=== PATIENT | female | born 1965 | race African-American/Black ===

== ENCOUNTER 2021-04-13 12:40 | Outpatient (CLI) | payer MEDICARE ==
[2021-04-13 23:10] LABS: SARS-CoV-2 PCR by NAA Not Detected (NotDetected)
== END 2021-04-13 12:41 | disposition home or self-care (01) ==
LOC: CSHLAB 12:40
PROVIDERS: ATTEND Internal Medicine
DX: Z20.822 Contact with and (suspected) exposure to COVID-19 (principal); K25.4 Chronic or unspecified gastric ulcer with hemorrhage; D62 Acute posthemorrhagic anemia
CPT/HCPCS: U0003; U0005

== ENCOUNTER 2021-04-18 07:35 | Day surgery (SDC) | payer OTHER, MEDICAID ==
[2021-04-18] MEDS ORDERED: Lidocaine 1% MPF 2 ML VIAL ONE (11:59)
[2021-04-18 12:13] VITALS: BMI 55.3
[2021-04-18 12:54] LABS: Hemoglobin 10.9 g/dL (12.0-15.5); Mean Corpuscular HGB CONC 29.5 g/dL (32.0-36.0); Mean Corpuscular Hemoglobin 22.2 pg (27.0-33.0); Mean Corpuscular Volume 75.2 fl (81.6-98.3); Mean Platelet Volume 9.9 fl (7.4-10.4); Platelet Count 422 10x3/uL (150-450); RBC Distribution Width 22.7 % (11.5-14.5); Red Blood Cell (RBC) Count 4.92 10x6/uL (3.90-5.03); White Blood Cell (WBC) Count 6.5 10x3/uL (3.5-10.5)
[2021-04-18 13:08] LABS: Anion Gap 14 mmol/L (10-20); BUN (Urea Nitrogen) 19 mg/dL (9.8-20.1); Calc. Creatinine Clearance 215 mL/min (70-130); Calcium 9.2 mg/dL (7.8-10.44); Carbon Dioxide 29 mmol/L (22-29); Chloride 102 mmol/L (98-107); Glucose 103 mg/dL (70-105); Sodium 141 mmol/L (136-145)
[2021-04-18] MEDS ORDERED: Ketamine 50 MG/ML (10ML VIAL) ONE (13:12)
[2021-04-18] MEDS ORDERED: Midazolam HCl 2 mg/2 ml Vial ONE (13:12)
[2021-04-18] MEDS ORDERED: PROPOFOL 40 ML ONE (13:13)
[2021-04-18] MEDS ORDERED: Ondansetron PF 4 MG/2 ML Vial ONE (13:37)
== END 2021-04-18 14:45 | disposition home or self-care (01) ==
LOC: CSHSDC 07:35
PROVIDERS: ATTEND Internal Medicine
PROC: 0DJ08ZZ Inspection of Upper Intestinal Tract, Via Natural or Artificial Opening Endoscopic (ICD-10-PCS; principal; 2021-04-18)
DX: Z09 Encounter for follow-up examination after completed treatment for conditions other than malignant neoplasm (principal); Z87.11 Personal history of peptic ulcer disease; I10 Essential (primary) hypertension; E78.5 Hyperlipidemia, unspecified; I25.10 Atherosclerotic heart disease of native coronary artery without angina pectoris; I48.91 Unspecified atrial fibrillation; I48.92 Unspecified atrial flutter; G47.30 Sleep apnea, unspecified; E66.01 Morbid (severe) obesity due to excess calories
CPT/HCPCS: 36415; 80048; 85027; 93005; 93010; J2250; J2405; J2704

== ENCOUNTER 2021-10-31 15:46 | Inpatient (IN) | payer OTHER, MEDICAID ==
[2021-10-31 17:03] LABS: #Basophils 0.1 10x3/uL (0.0-0.2); #Monocytes 0.7 10x3/uL (0.0-1.1); #Neutrophils 3.3 10x3/uL (1.5-8.4); %Basophils 1.3 % (0.0-2.0); %Eosinophils 0.4 % (0.0-6.0); %Lymphocytes 39.2 % (18.0-47.0); %Monocytes 10.2 % (0.0-10.0); %Neutrophils 48.8 % (40.0-75.0); Hemoglobin 13.7 g/dL (12.0-15.5); Mean Corpuscular HGB CONC 31.7 g/dL (32.0-36.0); Mean Corpuscular Hemoglobin 23.3 pg (27.0-33.0); Mean Corpuscular Volume 73.5 fl (81.6-98.3); Mean Platelet Volume 10.2 fl (7.4-10.4); Platelet Count 481 10x3/uL (150-450); RBC Distribution Width 21.7 % (11.5-14.5); Red Blood Cell (RBC) Count 5.88 10x6/uL (3.90-5.03); White Blood Cell (WBC) Count 6.7 10x3/uL (3.5-10.5)
[2021-10-31 17:13] LABS: ALT (SGPT) 36 U/L (8-55); AST (SGOT) 38 U/L (5-34); Albumin 4.4 g/dL (3.5-5.0); Alkaline Phosphatase 48 U/L (40-110); Anion Gap 15 mmol/L (10-20); BUN (Urea Nitrogen) 46 mg/dL (9.8-20.1); Bilirubin, Total 0.7 mg/dL (0.2-1.2); Calc. Creatinine Clearance 0 mL/min (70-130); Calcium 9.9 mg/dL (7.8-10.44); Carbon Dioxide 25 mmol/L (22-29); Chloride 102 mmol/L (98-107); Globulin 3.3 g/dL (2.4-3.5); Glucose 105 mg/dL (70-105); Potassium 4.8 mmol/L (3.5-5.1); Protein, Total 7.7 g/dL (6.0-8.3); Sodium 137 mmol/L (136-145)
[2021-10-31] MEDS ORDERED: Aspirin Chewable 81 MG TAB ONE (17:13)
[2021-10-31 17:35] LABS: CKMB 1.9 ng/mL (0-6.6)
[2021-10-31 18:48] LABS: Bilirubin Neg (Negative); Blood, Urine 250 (Negative); Clarity Clear (Clear); Glucose, Urine (Dipstick) Normal (Negative); Ketone, Urine Negative (Negative); Leukocyte Negative (Negative); Nitrite Negative (Negative); Protein, Urine (Dipstick) 100 mg/dl (Neg-Trace); Urobilinogen Normal mg/dL (Less than 2)
[2021-10-31 18:55] LABS: Bacteria/HPF None Seen HPF (None Seen); Squamous Epithelial 0-3 HPF (0-3); WBC/HPF 0-3 HPF (0-3)
[2021-10-31] MEDS ORDERED: Calcium Carbonate 500 MG ChewTAB PO PRN (20:08)
[2021-10-31] MEDS ORDERED: Guaifenesin DM 100-10/5 ML UDCUP PO PRN (20:08)
[2021-10-31] MEDS ORDERED: Ondansetron PF 4 MG/2 ML Vial IVP PRN (20:08)
[2021-10-31] MEDS ORDERED: Acetaminophen 325 MG TAB PO PRN (20:08)
[2021-10-31] MEDS ORDERED: Senokot S 8.6-50 MG TAB PO PRN (20:08)
[2021-10-31] MEDS ORDERED: Diltiazem 125 MG in Sodium Chloride 0.9% 100 ML IVPB SCH (20:15)
[2021-10-31] MEDS ORDERED: Digoxin 0.5 MG/2 ML AMP SLOW IVP SCH ×2 (20:15)
[2021-10-31] MEDS ORDERED: Metoprolol Tartrate 50 MG TAB PO SCH (21:00)
[2021-10-31 21:06] LABS: SARS-CoV-2 NAA Rapid Test Not Detected (NotDetected)
[2021-10-31 21:14] LABS: Troponin I 0.261 ng/mL (< 0.028)
[2021-10-31] MEDS ORDERED: Diltiazem 125 MG/25 ML ONE (21:59)
[2021-10-31] MEDS ORDERED: Furosemide 40 MG/4 ML VIAL ONE (22:05)
[2021-10-31 22:58] VITALS: BMI 53.6
[2021-10-31] MEDS: Atorvastatin Calcium 40 MG TAB PO SCH (23:24)
[2021-10-31 23:52] LABS: CKMB 1.7 ng/mL (0-6.6)
[2021-11-01] MEDS ORDERED: Digoxin 0.5 MG/2 ML AMP SLOW IVP SCH ×2 (03:00→05:30)
[2021-11-01 04:54] LABS: Hemoglobin 12.6 g/dL (12.0-15.5); Mean Corpuscular HGB CONC 32.1 g/dL (32.0-36.0); Mean Corpuscular Hemoglobin 23.5 pg (27.0-33.0); Mean Corpuscular Volume 73.1 fl (81.6-98.3); Mean Platelet Volume 10.3 fl (7.4-10.4); Platelet Count 398 10x3/uL (150-450); Red Blood Cell (RBC) Count 5.36 10x6/uL (3.90-5.03); White Blood Cell (WBC) Count 5.4 10x3/uL (3.5-10.5)
[2021-11-01 05:18] LABS: Anion Gap 17 mmol/L (10-20); BUN (Urea Nitrogen) 46 mg/dL (9.8-20.1); Calc. Creatinine Clearance 136 mL/min (70-130); Calcium 9.1 mg/dL (7.8-10.44); Carbon Dioxide 23 mmol/L (22-29); Chloride 102 mmol/L (98-107); Glucose 91 mg/dL (70-105); Sodium 138 mmol/L (136-145)
[2021-11-01 05:30] LABS: MDiff Complete? YES
[2021-11-01 05:31] LABS: CKMB 1.8 ng/mL (0-6.6)
[2021-11-01 05:34] LABS: Lymphocytes 49 % (21-51); Monocytes 11 % (0-10); Neutrophil 39 % (42-75); Platelet Morphology Comment Appears Adequate; Reactive Lymphocytes 1 % (0-10)
[2021-11-01 05:35] LABS: RBC Morphology Normal
[2021-11-01 05:43] LABS: Free T4 (Free Thyroxine) 0.98 ng/dL (0.70-1.48); Thyroid Stimulating Hormone 4.2402 uIU/mL (0.35-4.94)
[2021-11-01] MEDS: Furosemide 20 MG/2 ML VIAL SLOW IVP SCH ×2 (05:54→16:00)
[2021-11-01] MEDS: Aspirin 81 mg Enteric Coated Tablet PO SCH (08:09)
[2021-11-01] MEDS: Carvedilol 12.5 MG TAB PO SCH ×2 (08:09→16:35)
[2021-11-01] MEDS: Ferrous Sulfate 325 MG TAB PO SCH (08:09)
[2021-11-01] MEDS: Cholecalciferol 1,000 UNITS (25 MCG) TAB PO SCH (08:10)
[2021-11-01] MEDS: Digoxin 0.25 MG TAB PO SCH (08:45)
[2021-11-01] MEDS ORDERED: Enoxaparin Sodium 40 MG/0.4 ML SYRINGE SC SCH (09:00)
[2021-11-01 11:59] LABS: Bilirubin Neg (Negative); Blood, Urine 250 (Negative); Clarity Cloudy (Clear); Glucose, Urine (Dipstick) Normal (Negative); Ketone, Urine Negative (Negative); Leukocyte 25 (Negative); Nitrite Negative (Negative); Protein, Urine (Dipstick) 100 mg/dl (Neg-Trace); Urobilinogen Normal mg/dL (Less than 2)
[2021-11-01 12:19] LABS: Urine Culture Reflex No No
[2021-11-01 12:30] LABS: RBC/HPF Greater than 50 HPF (0-3)
[2021-11-01 12:31] LABS: Squamous Epithelial 0-3 HPF (0-3); WBC/HPF 0-3 HPF (0-3)
[2021-11-01 12:33] LABS: Bacteria/HPF None Seen HPF (None Seen)
[2021-11-01] MEDS: Atorvastatin Calcium 40 MG TAB PO SCH (20:16)
[2021-11-01] MEDS ORDERED: Apixaban 5 MG TAB PO SCH (21:00)
[2021-11-02] MEDS: Furosemide 20 MG/2 ML VIAL SLOW IVP SCH ×2 (05:53→15:33)
[2021-11-02] MEDS: Enoxaparin Sodium 40 MG/0.4 ML SYRINGE SC SCH (08:51)
[2021-11-02] MEDS: Cholecalciferol 1,000 UNITS (25 MCG) TAB PO SCH (08:51)
[2021-11-02] MEDS: Carvedilol 12.5 MG TAB PO SCH ×3 (08:52→20:36)
[2021-11-02] MEDS: Aspirin 81 mg Enteric Coated Tablet PO SCH (08:52)
[2021-11-02] MEDS: Digoxin 0.25 MG TAB PO SCH (08:52)
[2021-11-02] MEDS: Ferrous Sulfate 325 MG TAB PO SCH (08:56)
[2021-11-02] MEDS ORDERED: Digoxin 0.5 MG/2 ML AMP SLOW IVP SCH (10:00)
[2021-11-02 11:07] LABS: Anion Gap 14 mmol/L (10-20); BUN (Urea Nitrogen) 38 mg/dL (9.8-20.1); Calc. Creatinine Clearance 170 mL/min (70-130); Calcium 9.2 mg/dL (7.8-10.44); Carbon Dioxide 25 mmol/L (22-29); Chloride 101 mmol/L (98-107); Estimated GFR 67; Glucose 117 mg/dL (70-105); Magnesium 1.9 mg/dL (1.6-2.6); Potassium 4.2 mmol/L (3.5-5.1); Sodium 136 mmol/L (136-145)
[2021-11-02] MEDS: Atorvastatin Calcium 40 MG TAB PO SCH (20:36)
[2021-11-02] MEDS ORDERED: diphenhydrAMINE 25 MG CAP PO PRN (22:34)
[2021-11-03] MEDS: Furosemide 20 MG/2 ML VIAL SLOW IVP SCH (05:46)
[2021-11-03] MEDS: Enoxaparin Sodium 40 MG/0.4 ML SYRINGE SC SCH (08:18)
[2021-11-03] MEDS: Aspirin 81 mg Enteric Coated Tablet PO SCH (08:19)
[2021-11-03] MEDS: Digoxin 0.25 MG TAB PO SCH (08:19)
[2021-11-03] MEDS: Carvedilol 12.5 MG TAB PO SCH ×3 (08:19→19:39)
[2021-11-03] MEDS: Cholecalciferol 1,000 UNITS (25 MCG) TAB PO SCH (08:19)
[2021-11-03] MEDS: Ferrous Sulfate 325 MG TAB PO SCH (08:19)
[2021-11-03] MEDS ORDERED: Furosemide 20 MG TAB PO SCH (14:00)
[2021-11-03 19:16] LABS: Digoxin 1.01 ng/mL (0.8-2.0)
[2021-11-03] MEDS: Atorvastatin Calcium 40 MG TAB PO SCH (19:38)
[2021-11-04 06:17] LABS: Anion Gap 16 mmol/L (10-20); BUN (Urea Nitrogen) 37 mg/dL (9.8-20.1); Calc. Creatinine Clearance 152 mL/min (70-130); Carbon Dioxide 26 mmol/L (22-29); Chloride 102 mmol/L (98-107); Estimated GFR 58; Glucose 104 mg/dL (70-105); Potassium 4.1 mmol/L (3.5-5.1); Sodium 140 mmol/L (136-145)
[2021-11-04 06:27] LABS: Hemoglobin 12.4 g/dL (12.0-15.5); Mean Corpuscular HGB CONC 31.5 g/dL (32.0-36.0); Mean Corpuscular Hemoglobin 23.3 pg (27.0-33.0); Mean Corpuscular Volume 74.1 fl (81.6-98.3); Mean Platelet Volume 9.9 fl (7.4-10.4); Platelet Count 419 10x3/uL (150-450); RBC Distribution Width 21.9 % (11.5-14.5); Red Blood Cell (RBC) Count 5.32 10x6/uL (3.90-5.03); White Blood Cell (WBC) Count 5.4 10x3/uL (3.5-10.5)
[2021-11-04] MEDS: Ferrous Sulfate 325 MG TAB PO SCH (09:22)
[2021-11-04] MEDS: Enoxaparin Sodium 40 MG/0.4 ML SYRINGE SC SCH (09:22)
[2021-11-04] MEDS: Cholecalciferol 1,000 UNITS (25 MCG) TAB PO SCH (09:22)
[2021-11-04] MEDS: Furosemide 20 MG TAB PO SCH ×3 (09:23→15:24)
[2021-11-04] MEDS: Digoxin 0.25 MG TAB PO SCH (09:23)
[2021-11-04] MEDS: Aspirin 81 mg Enteric Coated Tablet PO SCH (09:23)
[2021-11-04] MEDS: Carvedilol 12.5 MG TAB PO SCH ×2 (09:23→15:00)
[2021-11-04 16:20] VITALS: BP 120/55; TEMP 97.5
== END 2021-11-04 16:35 | disposition home or self-care (01) | DRG 291 ==
LOC: CSHERS 15:46 → CSHIMCU 22:30 → CSHTELE 11-03 22:16
PROVIDERS: ADMIT Student in an Organized Health Care Education/Training Program; ATTEND Internal Medicine
DX: I13.0 Hypertensive heart and chronic kidney disease with heart failure and stage 1 through stage 4 chronic kidney disease, or unspecified chronic kidney disease (principal); I50.43 Acute on chronic combined systolic (congestive) and diastolic (congestive) heart failure; I31.3 Pericardial effusion (noninflammatory); I48.92 Unspecified atrial flutter; N17.9 Acute kidney failure, unspecified; Z68.43 Body mass index [BMI] 50.0-59.9, adult; I48.19 Other persistent atrial fibrillation; Z20.822 Contact with and (suspected) exposure to COVID-19; R79.89 Other specified abnormal findings of blood chemistry; E66.01 Morbid (severe) obesity due to excess calories; E55.9 Vitamin D deficiency, unspecified; E78.2 Mixed hyperlipidemia; I08.0 Rheumatic disorders of both mitral and aortic valves; M19.90 Unspecified osteoarthritis, unspecified site; E03.9 Hypothyroidism, unspecified; R00.1 Bradycardia, unspecified; I95.9 Hypotension, unspecified; N18.9 Chronic kidney disease, unspecified; R73.03 Prediabetes; G47.33 Obstructive sleep apnea (adult) (pediatric); Z82.49 Family history of ischemic heart disease and other diseases of the circulatory system; Z88.8 Allergy status to other drugs, medicaments and biological substances; Z79.899 Other long term (current) drug therapy; I25.2 Old myocardial infarction; Z87.11 Personal history of peptic ulcer disease; Z56.0 Unemployment, unspecified; Z91.19 Patient's noncompliance with other medical treatment and regimen
CPT/HCPCS: 36415; 71045; 80048; 80053; 80162; 81001; 81003; 81015; 82553; 83036; 83735; 83880; 84439; 84443; 84484; 85025; 85027; 87077; 87086; 93005; 93010; 93306; 94660; 94760; 96374; 96375; 96376; J1160; J1650; J1940; J3490; U0002

== ENCOUNTER 2021-12-17 15:04 | Inpatient (IN) | payer OTHER, MEDICAID ==
[2021-12-17 15:46] LABS: #Basophils 0.1 10x3/uL (0.0-0.2); #Monocytes 0.6 10x3/uL (0.0-1.1); #Neutrophils 2.8 10x3/uL (1.5-8.4); %Basophils 1.5 % (0.0-2.0); %Eosinophils 0.4 % (0.0-6.0); %Lymphocytes 33.8 % (18.0-47.0); %Monocytes 10.4 % (0.0-10.0); %Neutrophils 53.5 % (40.0-75.0); Hemoglobin 14.3 g/dL (12.0-15.5); Mean Corpuscular HGB CONC 31.8 g/dL (32.0-36.0); Mean Corpuscular Hemoglobin 24.2 pg (27.0-33.0); Mean Platelet Volume 10.3 fl (7.4-10.4); Platelet Count 410 10x3/uL (150-450); RBC Distribution Width 21.1 % (11.5-14.5); Red Blood Cell (RBC) Count 5.91 10x6/uL (3.90-5.03); White Blood Cell (WBC) Count 5.3 10x3/uL (3.5-10.5)
[2021-12-17 15:56] LABS: INR-International Normal Ratio 1.3; PTT 23.8 sec (22.0-33.0); Prothrombin Time 13.7 sec (9.5-12.1)
[2021-12-17 15:59] LABS: ALT (SGPT) 48 U/L (8-55); AST (SGOT) 41 U/L (5-34); Albumin 3.7 g/dL (3.5-5.0); Alkaline Phosphatase 62 U/L (40-110); Anion Gap 16 mmol/L (10-20); BUN (Urea Nitrogen) 52 mg/dL (9.8-20.1); Bilirubin, Total 1.5 mg/dL (0.2-1.2); Calc. Creatinine Clearance 0 mL/min (70-130); Calcium 9.4 mg/dL (7.8-10.44); Carbon Dioxide 24 mmol/L (22-29); Chloride 101 mmol/L (98-107); Estimated GFR 33; Globulin 2.6 g/dL (2.4-3.5); Glucose 149 mg/dL (70-105); Magnesium 2.1 mg/dL (1.6-2.6); Potassium 4.8 mmol/L (3.5-5.1); Protein, Total 6.3 g/dL (6.0-8.3); Sodium 136 mmol/L (136-145)
[2021-12-17 16:15] LABS: Digoxin Less than 0.15 ng/mL (0.8-2.0)
[2021-12-17] MEDS ORDERED: Digoxin 0.5 MG/2 ML AMP ONE (16:29)
[2021-12-17] MEDS ORDERED: Furosemide 40 MG/4 ML VIAL ONE (16:31)
[2021-12-17 16:33] LABS: CKMB 1.8 ng/mL (0-6.6)
[2021-12-17] MEDS ORDERED: Acetaminophen 325 MG TAB PO PRN (17:11)
[2021-12-17] MEDS ORDERED: Ondansetron PF 4 MG/2 ML Vial IVP PRN (17:11)
[2021-12-17] MEDS ORDERED: Senokot S 8.6-50 MG TAB PO PRN (17:11)
[2021-12-17] MEDS ORDERED: Ondansetron ODT 4 MG TAB PO PRN (17:11)
[2021-12-17] MEDS ORDERED: Diltiazem 125 MG in Sodium Chloride 0.9% 100 ML IVPB SCH (18:15)
[2021-12-17 18:16] VITALS: BMI 56.0
[2021-12-17 19:08] LABS: Troponin I 0.141 ng/mL (< 0.028)
[2021-12-17 20:01] LABS: Clarity Clear (Clear)
[2021-12-17 20:02] LABS: Bilirubin Neg (Negative); Blood, Urine Negative (Negative); Glucose, Urine (Dipstick) Normal (Negative); Ketone, Urine Negative (Negative); Leukocyte Negative (Negative); Nitrite Negative (Negative); Protein, Urine (Dipstick) Negative (Neg-Trace); Specific Gravity, Urine 1.015 (1.002-1.036); Urobilinogen Normal mg/dL (Less than 2)
[2021-12-17 20:09] LABS: Bacteria/HPF None Seen HPF (None Seen); RBC/HPF None Seen HPF (0-3); Squamous Epithelial 0-3 HPF (0-3); WBC/HPF 0-3 HPF (0-3)
[2021-12-17 20:31] LABS: SARS-CoV-2 NAA Rapid Test Not Detected (NotDetected)
[2021-12-17] MEDS: Carvedilol 12.5 MG TAB PO SCH (21:13)
[2021-12-17] MEDS: Atorvastatin Calcium 40 MG TAB PO SCH (21:13)
[2021-12-17 22:09] LABS: Troponin I 0.148 ng/mL (< 0.028)
[2021-12-17] MEDS ORDERED: diphenhydrAMINE 25 MG CAP PO SCH (22:30)
[2021-12-18 04:46] LABS: Anion Gap 15 mmol/L (10-20); BUN (Urea Nitrogen) 48 mg/dL (9.8-20.1); Calc. Creatinine Clearance 117 mL/min (70-130); Calcium 8.6 mg/dL (7.8-10.44); Carbon Dioxide 22 mmol/L (22-29); Chloride 104 mmol/L (98-107); Estimated GFR 40; Glucose 96 mg/dL (70-105); Potassium 4.2 mmol/L (3.5-5.1); Sodium 137 mmol/L (136-145)
[2021-12-18 05:39] LABS: Hemoglobin 13.4 g/dL (12.0-15.5); Mean Corpuscular HGB CONC 32.3 g/dL (32.0-36.0); Mean Corpuscular Hemoglobin 24.5 pg (27.0-33.0); Mean Corpuscular Volume 75.9 fl (81.6-98.3); Mean Platelet Volume 10.5 fl (7.4-10.4); RBC Distribution Width 21.1 % (11.5-14.5); Red Blood Cell (RBC) Count 5.47 10x6/uL (3.90-5.03); White Blood Cell (WBC) Count 5.2 10x3/uL (3.5-10.5)
[2021-12-18 05:54] LABS: #Basophils 0.1 10x3/uL (0.0-0.2); #Eosinphils 0.1 10x3/uL (0.0-0.5); #Monocytes 0.7 10x3/uL (0.0-1.1); #Neutrophils 2.2 10x3/uL (1.5-8.4); %Basophils 1.9 % (0.0-2.0); %Eosinophils 1.1 % (0.0-6.0); %Lymphocytes 41.7 % (18.0-47.0); %Monocytes 12.7 % (0.0-10.0); %Neutrophils 41.8 % (40.0-75.0)
[2021-12-18] MEDS ORDERED: Furosemide 40 MG/4 ML VIAL SLOW IVP SCH (06:00)
[2021-12-18 06:04] LABS: Platelet Count 348 10x3/uL (150-450)
[2021-12-18] MEDS: Aspirin 81 mg Enteric Coated Tablet PO SCH (09:23)
[2021-12-18] MEDS: Ferrous Sulfate 325 MG TAB PO SCH (09:23)
[2021-12-18] MEDS: Carvedilol 12.5 MG TAB PO SCH ×3 (09:23→21:13)
[2021-12-18] MEDS: Cholecalciferol 1,000 UNITS (25 MCG) TAB PO SCH (09:23)
[2021-12-18] MEDS: Digoxin 0.25 MG TAB PO SCH (09:23)
[2021-12-18] MEDS: Furosemide 40 MG/4 ML VIAL SLOW IVP SCH ×3 (09:24→21:13)
[2021-12-18] MEDS: Atorvastatin Calcium 40 MG TAB PO SCH (21:13)
[2021-12-18] MEDS ORDERED: diphenhydrAMINE 25 MG CAP PO SCH (21:15)
[2021-12-19] MEDS: Carvedilol 12.5 MG TAB PO SCH ×3 (08:34→20:43)
[2021-12-19] MEDS: Ferrous Sulfate 325 MG TAB PO SCH (08:34)
[2021-12-19] MEDS: Furosemide 40 MG/4 ML VIAL SLOW IVP SCH ×3 (08:34→20:43)
[2021-12-19] MEDS: Digoxin 0.25 MG TAB PO SCH (08:34)
[2021-12-19] MEDS: Cholecalciferol 1,000 UNITS (25 MCG) TAB PO SCH (08:34)
[2021-12-19] MEDS: Aspirin 81 mg Enteric Coated Tablet PO SCH (08:34)
[2021-12-19 08:44] LABS: #Basophils 0.1 10x3/uL (0.0-0.2); #Eosinphils 0.1 10x3/uL (0.0-0.5); #Monocytes 0.5 10x3/uL (0.0-1.1); #Neutrophils 2.7 10x3/uL (1.5-8.4); %Basophils 1.1 % (0.0-2.0); %Eosinophils 1.3 % (0.0-6.0); %Lymphocytes 27.6 % (18.0-47.0); %Monocytes 10.3 % (0.0-10.0); %Neutrophils 59.5 % (40.0-75.0); Hemoglobin 13.6 g/dL (12.0-15.5); Mean Corpuscular HGB CONC 31.3 g/dL (32.0-36.0); Mean Corpuscular Hemoglobin 24.7 pg (27.0-33.0); Mean Corpuscular Volume 79.1 fl (81.6-98.3); Mean Platelet Volume 10.4 fl (7.4-10.4); Platelet Count 352 10x3/uL (150-450); RBC Distribution Width 21.1 % (11.5-14.5); White Blood Cell (WBC) Count 4.6 10x3/uL (3.5-10.5)
[2021-12-19 08:55] LABS: Anion Gap 11 mmol/L (10-20); BUN (Urea Nitrogen) 43 mg/dL (9.8-20.1); Calc. Creatinine Clearance 134 mL/min (70-130); Calcium 8.8 mg/dL (7.8-10.44); Carbon Dioxide 34 mmol/L (22-29); Chloride 101 mmol/L (98-107); Estimated GFR 48; Glucose 100 mg/dL (70-105); Magnesium 1.8 mg/dL (1.6-2.6); Potassium 4.1 mmol/L (3.5-5.1); Sodium 142 mmol/L (136-145)
[2021-12-19] MEDS ORDERED: Magnesium Oxide 400 MG TAB PO SCH (14:15)
[2021-12-19] MEDS: Atorvastatin Calcium 40 MG TAB PO SCH (20:43)
[2021-12-19] MEDS ORDERED: diphenhydrAMINE 25 MG CAP PO SCH (22:15)
[2021-12-20 08:39] LABS: #Basophils 0.1 10x3/uL (0.0-0.2); #Eosinphils 0.1 10x3/uL (0.0-0.5); #Monocytes 0.5 10x3/uL (0.0-1.1); #Neutrophils 2.8 10x3/uL (1.5-8.4); %Basophils 1.1 % (0.0-2.0); %Eosinophils 1.7 % (0.0-6.0); %Monocytes 10.1 % (0.0-10.0); %Neutrophils 59.1 % (40.0-75.0); Anion Gap 13 mmol/L (10-20); BUN (Urea Nitrogen) 37 mg/dL (9.8-20.1); Calc. Creatinine Clearance 160 mL/min (70-130); Calcium 8.7 mg/dL (7.8-10.44); Carbon Dioxide 31 mmol/L (22-29); Chloride 103 mmol/L (98-107); Estimated GFR 61; Glucose 105 mg/dL (70-105); Hemoglobin 13.6 g/dL (12.0-15.5); Mean Corpuscular HGB CONC 31.3 g/dL (32.0-36.0); Mean Corpuscular Hemoglobin 24.2 pg (27.0-33.0); Mean Corpuscular Volume 77.2 fl (81.6-98.3); Mean Platelet Volume 10.2 fl (7.4-10.4); Platelet Count 387 10x3/uL (150-450); Potassium 4.2 mmol/L (3.5-5.1); Red Blood Cell (RBC) Count 5.62 10x6/uL (3.90-5.03); Sodium 143 mmol/L (136-145); White Blood Cell (WBC) Count 4.8 10x3/uL (3.5-10.5)
[2021-12-20 08:40] LABS: Magnesium 1.7 mg/dL (1.6-2.6)
[2021-12-20] MEDS: Cholecalciferol 1,000 UNITS (25 MCG) TAB PO SCH (10:09)
[2021-12-20] MEDS: Furosemide 40 MG/4 ML VIAL SLOW IVP SCH ×3 (10:09→20:37)
[2021-12-20] MEDS: Digoxin 0.25 MG TAB PO SCH (10:09)
[2021-12-20] MEDS: Aspirin 81 mg Enteric Coated Tablet PO SCH (10:09)
[2021-12-20] MEDS: Ferrous Sulfate 325 MG TAB PO SCH (10:09)
[2021-12-20] MEDS: Carvedilol 12.5 MG TAB PO SCH ×3 (10:10→20:37)
[2021-12-20] MEDS: Magnesium Oxide 400 MG TAB PO SCH (10:10)
[2021-12-20] MEDS: Atorvastatin Calcium 40 MG TAB PO SCH (20:37)
[2021-12-20] MEDS ORDERED: diphenhydrAMINE 25 MG CAP PO SCH (22:30)
[2021-12-21 09:16] LABS: Anion Gap 13 mmol/L (10-20); BUN (Urea Nitrogen) 27 mg/dL (9.8-20.1); Calc. Creatinine Clearance 166 mL/min (70-130); Calcium 8.8 mg/dL (7.8-10.44); Carbon Dioxide 35 mmol/L (22-29); Chloride 102 mmol/L (98-107); Estimated GFR 64; Glucose 110 mg/dL (70-105); Magnesium 1.5 mg/dL (1.6-2.6); Potassium 3.8 mmol/L (3.5-5.1); Sodium 146 mmol/L (136-145)
[2021-12-21] MEDS: Carvedilol 12.5 MG TAB PO SCH ×2 (09:37→15:30)
[2021-12-21] MEDS: Magnesium Oxide 400 MG TAB PO SCH (09:37)
[2021-12-21] MEDS: Ferrous Sulfate 325 MG TAB PO SCH (09:37)
[2021-12-21] MEDS: Digoxin 0.25 MG TAB PO SCH (09:37)
[2021-12-21] MEDS: Cholecalciferol 1,000 UNITS (25 MCG) TAB PO SCH (09:37)
[2021-12-21] MEDS: Aspirin 81 mg Enteric Coated Tablet PO SCH (09:37)
[2021-12-21] MEDS: Furosemide 40 MG/4 ML VIAL SLOW IVP SCH (09:37)
[2021-12-21] MEDS ORDERED: Potassium Chloride 20 MEQ TAB PO SCH (10:00)
[2021-12-21] MEDS ORDERED: Magnesium 2 GM/50 ML(in water) 2 GM in Premix Bag 1 BAG IVPB SCH (10:00)
[2021-12-21] MEDS ORDERED: traMADol HCl 50 MG TAB PO SCH (11:00)
[2021-12-21 14:38] VITALS: BP 116/53; TEMP 95.6
[2021-12-22] MEDS ORDERED: Torsemide 100 MG TAB PO SCH (10:00)
== END 2021-12-21 18:25 | disposition home or self-care (01) | DRG 291 ==
LOC: CSHERS 15:04 → CSHTELE 16:53
PROVIDERS: ADMIT Family Medicine; ATTEND Family Medicine
DX: I11.0 Hypertensive heart disease with heart failure (principal); I50.43 Acute on chronic combined systolic (congestive) and diastolic (congestive) heart failure; J96.21 Acute and chronic respiratory failure with hypoxia; Z68.43 Body mass index [BMI] 50.0-59.9, adult; N17.9 Acute kidney failure, unspecified; I48.19 Other persistent atrial fibrillation; I48.92 Unspecified atrial flutter; I42.9 Cardiomyopathy, unspecified; G47.33 Obstructive sleep apnea (adult) (pediatric); M19.90 Unspecified osteoarthritis, unspecified site; E03.9 Hypothyroidism, unspecified; E66.01 Morbid (severe) obesity due to excess calories; I27.20 Pulmonary hypertension, unspecified; R73.9 Hyperglycemia, unspecified; D50.9 Iron deficiency anemia, unspecified; K21.9 Gastro-esophageal reflux disease without esophagitis; E78.2 Mixed hyperlipidemia; R73.03 Prediabetes; Z20.822 Contact with and (suspected) exposure to COVID-19; I08.0 Rheumatic disorders of both mitral and aortic valves; Z88.8 Allergy status to other drugs, medicaments and biological substances; Z99.81 Dependence on supplemental oxygen; Z79.82 Long term (current) use of aspirin; Z79.899 Other long term (current) drug therapy; Z79.01 Long term (current) use of anticoagulants; Z91.19 Patient's noncompliance with other medical treatment and regimen
CPT/HCPCS: 36415; 71045; 80048; 80053; 80162; 81001; 82553; 83735; 83880; 84484; 85025; 85610; 85730; 93005; 94760; 96374; 96375; 97139; J1160; J1940; J3475; U0002

== ENCOUNTER 2022-08-27 10:50 | Inpatient (IN) | payer OTHER, MEDICAID ==
[2022-08-27] MEDS ORDERED: Bumetanide 1 MG/4 ML VIAL IVP SCH (11:30)
[2022-08-27 11:48] LABS: #Basophils 0.1 10x3/uL (0.0-0.2); #Monocytes 0.5 10x3/uL (0.0-1.1); #Neutrophils 3.3 10x3/uL (1.5-8.4); %Basophils 1.1 % (0.0-2.0); %Eosinophils 0.4 % (0.0-6.0); %Lymphocytes 18.7 % (18.0-47.0); %Neutrophils 69.4 % (40.0-75.0); Mean Corpuscular HGB CONC 35.8 g/dL (32.0-36.0); Mean Corpuscular Hemoglobin 29.9 pg (27.0-33.0); Mean Corpuscular Volume 83.6 fl (81.6-98.3); Mean Platelet Volume 10.8 fl (7.4-10.4); Platelet Count 169 10x3/uL (150-450); Red Blood Cell (RBC) Count 5.68 10x6/uL (3.90-5.03); White Blood Cell (WBC) Count 4.7 10x3/uL (3.5-10.5)
[2022-08-27 12:00] LABS: ALT (SGPT) 26 U/L (8-55); Albumin 3.1 g/dL (3.5-5.0); Alkaline Phosphatase 103 U/L (40-110); Anion Gap 19 mmol/L (10-20); BUN (Urea Nitrogen) 72 mg/dL (9.8-20.1); Bilirubin, Total 3.5 mg/dL (0.2-1.2); Calc. Creatinine Clearance 0 mL/min (70-130); Calcium 9.3 mg/dL (7.8-10.44); Carbon Dioxide 20 mmol/L (22-29); Chloride 97 mmol/L (98-107); Estimated GFR 23; Globulin 3.8 g/dL (2.4-3.5); Glucose 87 mg/dL (70-105); Lipase 12 U/L (8-78); Protein, Total 6.9 g/dL (6.0-8.3); Sodium 130 mmol/L (136-145)
[2022-08-27 12:15] LABS: AST (SGOT) 42 U/L (5-34); Magnesium 1.9 mg/dL (1.6-2.6); Potassium 6.4 mmol/L (3.5-5.1)
[2022-08-27 12:35] LABS: CKMB 3.7 ng/mL (0-6.6)
[2022-08-27 13:04] LABS: Actual Bicarbonate (HCO3a) 17.4 mEq/L (22-28); Base Excess (BEa) -7.1 mEq/L (-2.0 to +3.0); Calcium, Ionized (arterial) 1.29 mmol/L (1.12-1.30); Carboxyhemoglobin (COHb) 1.1 gm% (0.0-3.0); Hematocrit-ABG 51 % (36.0-47.0); Hemoglobin (Hb) 17.4 g/dL (12.0-16.0); O2 Tension (PaO2), arterial 77.8 mmHg (80.0-100.0); Potassium - ABG Lab 5.69 mmol/L (3.70-5.30); Puncture Site LRA; pH, Arterial 7.339 (7.35-7.45)
[2022-08-27] MEDS ORDERED: Calcium Chloride 1 GM/10 ML Abboject SYRINGE ONE (13:13)
[2022-08-27] MEDS ORDERED: Dextrose 50% Abboject 50 ML SYRINGE ONE ×2 (13:13→16:15)
[2022-08-27] MEDS ORDERED: Insulin Regular 300 UNITS/3 ML VIAL ONE (13:14)
[2022-08-27] MEDS ORDERED: Sodium Bicarb 50 MEQ/50 ML Abboject 8.4% SYRINGE ONE (13:14)
[2022-08-27] MEDS ORDERED: LOKELMA 10 GM PACKET PO SCH (13:30)
[2022-08-27 13:42] LABS: Anion Gap 17 mmol/L (10-20); BUN (Urea Nitrogen) 72 mg/dL (9.8-20.1); Calc. Creatinine Clearance 0 mL/min (70-130); Calcium 9.6 mg/dL (7.8-10.44); Carbon Dioxide 22 mmol/L (22-29); Chloride 97 mmol/L (98-107); Estimated GFR 23; Glucose 80 mg/dL (70-105); Sodium 130 mmol/L (136-145)
[2022-08-27 13:56] LABS: Potassium 6.3 mmol/L (3.5-5.1)
[2022-08-27] MEDS ORDERED: Midazolam HCl 2 mg/2 ml Vial ONE ×2 (13:59→14:38)
[2022-08-27] MEDS ORDERED: Metoprolol Tartrate 5 MG/5 ML VIAL IVP PRN ×2 (14:49→16:02)
[2022-08-27] MEDS ORDERED: NOREPINEPHRINE 8 MG/250 ML-D5W 250 ML ONE (15:28)
[2022-08-27 16:05] LABS: Anion Gap 15 mmol/L (10-20); BUN (Urea Nitrogen) 73 mg/dL (9.8-20.1); Calc. Creatinine Clearance 0 mL/min (70-130); Calcium 9.5 mg/dL (7.8-10.44); Carbon Dioxide 24 mmol/L (22-29); Chloride 97 mmol/L (98-107); Estimated GFR 24; Potassium 5.3 mmol/L (3.5-5.1); Sodium 131 mmol/L (136-145)
[2022-08-27 16:12] LABS: Glucose 53 mg/dL (70-105)
[2022-08-27 16:20] LABS: Bilirubin Neg (Negative); Blood, Urine 250 (Negative); Clarity Clear (Clear); Glucose, Urine (Dipstick) Normal (Negative); Ketone, Urine Negative (Negative); Leukocyte 25 (Negative); Nitrite Negative (Negative); Protein, Urine (Dipstick) 30 mg/dl (Neg-Trace)
[2022-08-27 17:17] LABS: RBC/HPF 21-50 HPF (0-3)
[2022-08-27 17:18] LABS: Bacteria/HPF 2+ HPF (None Seen); Mucous/LPF 1+ LPF (<2+); WBC/HPF 0-3 HPF (0-3)
[2022-08-27] MEDS ORDERED: Dextrose 5% in Water 1,000 ML IV PRN (18:08)
[2022-08-27] MEDS ORDERED: HumaLOG 300 UNITS/3 ML VIAL SC PRN (18:08)
[2022-08-27] MEDS ORDERED: Albumin 25% 25 GM/100 ML BOT IVPB PRN (18:30)
[2022-08-27 19:54] LABS: HBSAg Index 0.17 S/CO (0-0.99); Hep B Surf Ag Non-Reactive S/CO (NonReactive)
[2022-08-27] MEDS ORDERED: Levothyroxine Sodium 50 MCG TAB PO SCH (20:00)
[2022-08-27] MEDS ORDERED: Vancomycin Dialysis Sliding Scale (Wt > 99) FS SCH (20:15)
[2022-08-27] MEDS: Heparin 5,000 UNITS/ML VIAL SC SCH (20:43)
[2022-08-27] MEDS: Hydrocortisone Sod Succ/PF 100 mg/2 ml Vial IVP SCH (20:43)
[2022-08-27] MEDS ORDERED: Digoxin 0.5 MG/2 ML AMP SLOW IVP SCH (21:00)
[2022-08-27] MEDS ORDERED: Vancomycin 1 GM in Premix Bag 1 BAG IVPB SCH (21:00)
[2022-08-27 21:45] LABS: Anion Gap 18 mmol/L (10-20); BUN (Urea Nitrogen) 57 mg/dL (9.8-20.1); Calc. Creatinine Clearance 90 mL/min (70-130); Calcium 9.2 mg/dL (7.8-10.44); Carbon Dioxide 22 mmol/L (22-29); Chloride 97 mmol/L (98-107); Estimated GFR 27; Glucose 83 mg/dL (70-105); Potassium 4.9 mmol/L (3.5-5.1); Sodium 132 mmol/L (136-145)
[2022-08-27 21:46] LABS: Digoxin Less than 0.15 ng/mL (0.8-2.0)
[2022-08-27] MEDS: Acetaminophen 325 MG TAB PO PRN (22:01)
[2022-08-28] MEDS ORDERED: VANCOMYCIN 1.75 GM/350 ML BAG 1.75 GM in Premix Bag 1 BAG IVPB SCH ×2 (00:01→15:00)
[2022-08-28] MEDS ORDERED: Cefepime 0.5 GM, Admixture Fee 1 EACH in Sodium Chloride 0.9% 100 ML IVPB SCH (00:01)
[2022-08-28 01:08] LABS: Anion Gap 22 mmol/L (10-20); BUN (Urea Nitrogen) 59 mg/dL (9.8-20.1); Calc. Creatinine Clearance 83 mL/min (70-130); Calcium 9.5 mg/dL (7.8-10.44); Carbon Dioxide 18 mmol/L (22-29); Chloride 100 mmol/L (98-107); Estimated GFR 25; Glucose 79 mg/dL (70-105); Sodium 133 mmol/L (136-145)
[2022-08-28 01:12] LABS: Potassium 6.6 mmol/L (3.5-5.1)
[2022-08-28] MEDS: NOREPINEPHRINE 8 MG/250 ML-D5W 250 ML IVPB SCH ×2 (01:20→18:20)
[2022-08-28] MEDS: Hydrocortisone Sod Succ/PF 100 mg/2 ml Vial IVP SCH ×4 (02:32→20:17)
[2022-08-28 03:02] LABS: Potassium 5.4 mmol/L (3.5-5.1)
[2022-08-28] MEDS ORDERED: Sodium Bicarb 50 MEQ/50 ML VIAL IVP SCH (03:30)
[2022-08-28] MEDS: Dextrose 50% Abboject 50 ML SYRINGE SLOW IVP PRN (03:34)
[2022-08-28] MEDS: Acetaminophen 325 MG TAB PO PRN (03:46)
[2022-08-28 04:59] LABS: #Eosinphils 0.1 10x3/uL (0.0-0.5); #Monocytes 0.6 10x3/uL (0.0-1.1); #Neutrophils 6.5 10x3/uL (1.5-8.4); %Basophils 0.3 % (0.0-2.0); %Eosinophils 0.6 % (0.0-6.0); %Lymphocytes 7.5 % (18.0-47.0); %Monocytes 7.4 % (0.0-10.0); %Neutrophils 83.7 % (40.0-75.0); Hemoglobin 16.5 g/dL (12.0-15.5); Mean Corpuscular HGB CONC 35.8 g/dL (32.0-36.0); Mean Corpuscular Hemoglobin 30.1 pg (27.0-33.0); Mean Platelet Volume 9.8 fl (7.4-10.4); Platelet Count 142 10x3/uL (150-450); RBC Distribution Width 19.9 % (11.5-14.5); Red Blood Cell (RBC) Count 5.49 10x6/uL (3.90-5.03); White Blood Cell (WBC) Count 7.8 10x3/uL (3.5-10.5)
[2022-08-28 05:10] LABS: Anion Gap 17 mmol/L (10-20); BUN (Urea Nitrogen) 62 mg/dL (9.8-20.1); Calc. Creatinine Clearance 79 mL/min (70-130); Calcium 9.3 mg/dL (7.8-10.44); Carbon Dioxide 22 mmol/L (22-29); Chloride 97 mmol/L (98-107); Estimated GFR 23; Glucose 141 mg/dL (70-105); Potassium 5.2 mmol/L (3.5-5.1); Sodium 131 mmol/L (136-145)
[2022-08-28] MEDS: Levothyroxine Sodium 50 MCG TAB PO SCH (05:40)
[2022-08-28] MEDS: Digoxin 0.125 MG TAB PO SCH (07:05)
[2022-08-28] MEDS: Heparin 5,000 UNITS/ML VIAL SC SCH ×3 (08:00→20:16)
[2022-08-28] MEDS: Metoprolol Tartrate 25 MG TAB PO SCH ×3 (08:01→20:20)
[2022-08-28 08:19] LABS: Anion Gap 19 mmol/L (10-20); BUN (Urea Nitrogen) 62 mg/dL (9.8-20.1); Calc. Creatinine Clearance 82 mL/min (70-130); Calcium 9.4 mg/dL (7.8-10.44); Carbon Dioxide 19 mmol/L (22-29); Chloride 99 mmol/L (98-107); Estimated GFR 22; Glucose 113 mg/dL (70-105); Potassium 5.5 mmol/L (3.5-5.1); Sodium 131 mmol/L (136-145)
[2022-08-28] MEDS ORDERED: Heparin 10,000 UNITS/ 10 ML VIAL FS PRN (08:33)
[2022-08-28] MEDS ORDERED: Albumin 25% 25 GM/100 ML BOT IVPB PRN (08:34)
[2022-08-28] MEDS: Cefepime 1 GM in Sodium Chloride 0.9% 100 ML IVPB SCH (14:34)
[2022-08-28 15:03] LABS: HBSAB Concentration Less than 8.00 mIU/mL; Hep B Core Total Ab Non-Reactive (NonReactive); Hep B Core Total Index 0.13 S/CO (0-0.79); Hep B Surf AB Non-Reactive (NonReactive); Hep C IgG Ab Non-Reactive S/CO (NonReactive); Hep C Index 0.14 S/CO (0-0.79)
[2022-08-29] MEDS: Hydrocortisone Sod Succ/PF 100 mg/2 ml Vial IVP SCH ×4 (01:48→19:49)
[2022-08-29] MEDS: Cefepime 1 GM in Sodium Chloride 0.9% 100 ML IVPB SCH (04:07)
[2022-08-29 05:21] LABS: #Monocytes 0.6 10x3/uL (0.0-1.1); #Neutrophils 8.1 10x3/uL (1.5-8.4); %Basophils 0.4 % (0.0-2.0); %Eosinophils 0.4 % (0.0-6.0); %Lymphocytes 4.9 % (18.0-47.0); %Monocytes 6.3 % (0.0-10.0); %Neutrophils 87.7 % (40.0-75.0); Hemoglobin 16.8 g/dL (12.0-15.5); Mean Corpuscular HGB CONC 35.2 g/dL (32.0-36.0); Mean Corpuscular Hemoglobin 29.7 pg (27.0-33.0); Mean Corpuscular Volume 84.2 fl (81.6-98.3); Mean Platelet Volume 10.2 fl (7.4-10.4); Platelet Count 130 10x3/uL (150-450); RBC Distribution Width 20.4 % (11.5-14.5); Red Blood Cell (RBC) Count 5.63 10x6/uL (3.90-5.03); White Blood Cell (WBC) Count 9.2 10x3/uL (3.5-10.5)
[2022-08-29 05:25] LABS: ALT (SGPT) 18 U/L (8-55); AST (SGOT) 20 U/L (5-34); Albumin 2.8 g/dL (3.5-5.0); Alkaline Phosphatase 91 U/L (40-110); Anion Gap 17 mmol/L (10-20); BUN (Urea Nitrogen) 52 mg/dL (9.8-20.1); Calc. Creatinine Clearance 79 mL/min (70-130); Calcium 9.5 mg/dL (7.8-10.44); Carbon Dioxide 23 mmol/L (22-29); Chloride 99 mmol/L (98-107); Estimated GFR 21; Glucose 134 mg/dL (70-105); Potassium 5.2 mmol/L (3.5-5.1); Protein, Total 5.8 g/dL (6.0-8.3); Sodium 134 mmol/L (136-145)
[2022-08-29] MEDS: Levothyroxine Sodium 50 MCG TAB PO SCH (05:56)
[2022-08-29] MEDS: Digoxin 0.125 MG TAB PO SCH (06:37)
[2022-08-29 08:12] LABS: Vancomycin, Random 20.6 ug/mL (See Comment)
[2022-08-29] MEDS ORDERED: Albumin 25% 25 GM/100 ML BOT IVPB PRN (08:37)
[2022-08-29] MEDS: Heparin 5,000 UNITS/ML VIAL SC SCH ×3 (08:46→20:48)
[2022-08-29] MEDS: Metoprolol Tartrate 25 MG TAB PO SCH ×2 (08:47→20:47)
[2022-08-29] MEDS ORDERED: Atropine Sulfate 1 mg/10 ml Syringe ONE (10:51)
[2022-08-29] MEDS: HumaLOG 300 UNITS/3 ML VIAL SC PRN ×2 (13:40→16:20)
[2022-08-29] MEDS: Acetaminophen 325 MG TAB PO PRN (16:01)
[2022-08-30] MEDS: Hydrocortisone Sod Succ/PF 100 mg/2 ml Vial IVP SCH ×3 (02:47→14:51)
[2022-08-30] MEDS: Levothyroxine Sodium 50 MCG TAB PO SCH (05:23)
[2022-08-30 05:29] LABS: #Monocytes 0.4 10x3/uL (0.0-1.1); #Neutrophils 6.6 10x3/uL (1.5-8.4); %Basophils 0.1 % (0.0-2.0); %Lymphocytes 5.5 % (18.0-47.0); %Monocytes 5.8 % (0.0-10.0); %Neutrophils 88.1 % (40.0-75.0); Mean Corpuscular HGB CONC 35.4 g/dL (32.0-36.0); Mean Corpuscular Hemoglobin 29.7 pg (27.0-33.0); Mean Platelet Volume 11.3 fl (7.4-10.4); Platelet Count 105 10x3/uL (150-450); RBC Distribution Width 20.2 % (11.5-14.5); Red Blood Cell (RBC) Count 5.38 10x6/uL (3.90-5.03); White Blood Cell (WBC) Count 7.2 10x3/uL (3.5-10.5)
[2022-08-30 05:32] LABS: Anion Gap 19 mmol/L (10-20); BUN (Urea Nitrogen) 44 mg/dL (9.8-20.1); Calc. Creatinine Clearance 80 mL/min (70-130); Calcium 9.4 mg/dL (7.8-10.44); Carbon Dioxide 22 mmol/L (22-29); Chloride 99 mmol/L (98-107); Estimated GFR 23; Glucose 115 mg/dL (70-105); Sodium 135 mmol/L (136-145)
[2022-08-30] MEDS: Digoxin 0.125 MG TAB PO SCH (06:28)
[2022-08-30] MEDS: Heparin 5,000 UNITS/ML VIAL SC SCH ×3 (08:08→20:29)
[2022-08-30] MEDS: Metoprolol Tartrate 25 MG TAB PO SCH ×2 (08:09→20:29)
[2022-08-30] MEDS: Cefepime 1 GM in Sodium Chloride 0.9% 100 ML IVPB SCH ×2 (08:09→20:29)
[2022-08-30] MEDS: Hydrocortisone 10 mg Tablet PO SCH ×2 (14:52→20:29)
[2022-08-30] MEDS: HumaLOG 300 UNITS/3 ML VIAL SC PRN (15:38)
[2022-08-30] MEDS: Acetaminophen 325 MG TAB PO PRN (20:50)
[2022-08-31] MEDS: Digoxin 0.125 MG TAB PO SCH (05:46)
[2022-08-31] MEDS: Levothyroxine Sodium 50 MCG TAB PO SCH (05:46)
[2022-08-31] MEDS: Cefepime 1 GM in Sodium Chloride 0.9% 100 ML IVPB SCH ×2 (08:15→20:20)
[2022-08-31] MEDS: Metoprolol Tartrate 25 MG TAB PO SCH ×2 (08:15→20:19)
[2022-08-31] MEDS: Hydrocortisone 10 mg Tablet PO SCH ×3 (08:16→20:20)
[2022-08-31] MEDS: Heparin 5,000 UNITS/ML VIAL SC SCH ×3 (08:16→20:19)
[2022-08-31 11:14] LABS: Anion Gap 16 mmol/L (10-20); BUN (Urea Nitrogen) 51 mg/dL (9.8-20.1); Calc. Creatinine Clearance 76 mL/min (70-130); Calcium 9.1 mg/dL (7.8-10.44); Carbon Dioxide 24 mmol/L (22-29); Chloride 98 mmol/L (98-107); Estimated GFR 21; Glucose 145 mg/dL (70-105); Potassium 4.8 mmol/L (3.5-5.1); Sodium 133 mmol/L (136-145)
[2022-08-31 11:31] LABS: Hemoglobin 16.5 g/dL (12.0-15.5); Mean Corpuscular HGB CONC 35.7 g/dL (32.0-36.0); Mean Corpuscular Hemoglobin 30.1 pg (27.0-33.0); Mean Corpuscular Volume 84.2 fl (81.6-98.3); Mean Platelet Volume 11.1 fl (7.4-10.4); Platelet Count 110 10x3/uL (150-450); RBC Distribution Width 20.2 % (11.5-14.5); Red Blood Cell (RBC) Count 5.49 10x6/uL (3.90-5.03); White Blood Cell (WBC) Count 8.3 10x3/uL (3.5-10.5)
[2022-08-31 11:32] LABS: #Eosinphils 0.1 10x3/uL (0.0-0.5); #Monocytes 0.5 10x3/uL (0.0-1.1); %Basophils 0.4 % (0.0-2.0); %Eosinophils 0.7 % (0.0-6.0); %Lymphocytes 4.8 % (18.0-47.0); %Monocytes 6.4 % (0.0-10.0); %Neutrophils 87.2 % (40.0-75.0)
[2022-08-31] MEDS: Acetaminophen 325 MG TAB PO PRN (20:37)
[2022-09-01 04:11] LABS: Anion Gap 16 mmol/L (10-20); BUN (Urea Nitrogen) 53 mg/dL (9.8-20.1); Calc. Creatinine Clearance 76 mL/min (70-130); Calcium 9.1 mg/dL (7.8-10.44); Carbon Dioxide 20 mmol/L (22-29); Chloride 101 mmol/L (98-107); Estimated GFR 21; Glucose 106 mg/dL (70-105); Potassium 5.1 mmol/L (3.5-5.1); Sodium 132 mmol/L (136-145)
[2022-09-01] MEDS: Levothyroxine Sodium 50 MCG TAB PO SCH (05:46)
[2022-09-01] MEDS: Digoxin 0.125 MG TAB PO SCH (05:46)
[2022-09-01] MEDS: Cefepime 1 GM in Sodium Chloride 0.9% 100 ML IVPB SCH ×2 (08:10→22:00)
[2022-09-01] MEDS: Heparin 5,000 UNITS/ML VIAL SC SCH ×3 (08:10→22:00)
[2022-09-01] MEDS: Metoprolol Tartrate 25 MG TAB PO SCH ×2 (08:10→22:00)
[2022-09-01] MEDS: Hydrocortisone 10 mg Tablet PO SCH ×2 (08:11→21:59)
[2022-09-01] MEDS: HumaLOG 300 UNITS/3 ML VIAL SC PRN (15:42)
[2022-09-01] MEDS: Acetaminophen 325 MG TAB PO PRN (22:16)
[2022-09-02 03:38] LABS: Anion Gap 16 mmol/L (10-20); BUN (Urea Nitrogen) 59 mg/dL (9.8-20.1); Calc. Creatinine Clearance 72 mL/min (70-130); Calcium 8.8 mg/dL (7.8-10.44); Carbon Dioxide 20 mmol/L (22-29); Chloride 101 mmol/L (98-107); Estimated GFR 20; Glucose 101 mg/dL (70-105); Potassium 4.8 mmol/L (3.5-5.1); Sodium 132 mmol/L (136-145)
[2022-09-02] MEDS: Levothyroxine Sodium 50 MCG TAB PO SCH (06:13)
[2022-09-02] MEDS: Digoxin 0.125 MG TAB PO SCH (06:13)
[2022-09-02] MEDS: Hydrocortisone 10 mg Tablet PO SCH ×2 (09:20→21:56)
[2022-09-02] MEDS: Metoprolol Tartrate 25 MG TAB PO SCH ×2 (09:20→21:56)
[2022-09-02] MEDS: Heparin 5,000 UNITS/ML VIAL SC SCH ×3 (09:20→21:55)
[2022-09-02] MEDS: Cefepime 1 GM in Sodium Chloride 0.9% 100 ML IVPB SCH (09:21)
[2022-09-02 15:18] LABS: Phosphorus 3.4 mg/dL (2.3-4.7)
[2022-09-02] MEDS ORDERED: Heparin 10,000 UNITS/ 10 ML VIAL FS PRN (17:00)
[2022-09-02] MEDS: Cefdinir 300 MG CAP PO SCH (21:55)
[2022-09-03] MEDS: Acetaminophen 325 MG TAB PO PRN (00:48)
[2022-09-03 03:58] LABS: Anion Gap 19 mmol/L (10-20); BUN (Urea Nitrogen) 51 mg/dL (9.8-20.1); Calc. Creatinine Clearance 69 mL/min (70-130); Calcium 9.3 mg/dL (7.8-10.44); Carbon Dioxide 18 mmol/L (22-29); Chloride 101 mmol/L (98-107); Estimated GFR 19; Glucose 91 mg/dL (70-105); Potassium 5.1 mmol/L (3.5-5.1); Sodium 133 mmol/L (136-145)
[2022-09-03] MEDS: Levothyroxine Sodium 50 MCG TAB PO SCH (06:22)
[2022-09-03] MEDS: Digoxin 0.125 MG TAB PO SCH (06:22)
[2022-09-03] MEDS: Metoprolol Tartrate 25 MG TAB PO SCH ×3 (09:07→21:20)
[2022-09-03] MEDS: Hydrocortisone 10 mg Tablet PO SCH ×2 (09:08→21:20)
[2022-09-03] MEDS: Cefdinir 300 MG CAP PO SCH ×2 (09:10→21:20)
[2022-09-03] MEDS: Heparin 5,000 UNITS/ML VIAL SC SCH ×3 (09:11→21:21)
[2022-09-03] MEDS: HumaLOG 300 UNITS/3 ML VIAL SC PRN (12:51)
[2022-09-03 18:10] LABS: Phosphorus 4.8 mg/dL (2.3-4.7)
[2022-09-04 04:27] LABS: Anion Gap 19 mmol/L (10-20); BUN (Urea Nitrogen) 56 mg/dL (9.8-20.1); Calc. Creatinine Clearance 66 mL/min (70-130); Calcium 9.3 mg/dL (7.8-10.44); Carbon Dioxide 17 mmol/L (22-29); Chloride 99 mmol/L (98-107); Estimated GFR 18; Glucose 99 mg/dL (70-105); Potassium 5.1 mmol/L (3.5-5.1); Sodium 130 mmol/L (136-145)
[2022-09-04 04:37] LABS: #Monocytes 0.6 10x3/uL (0.0-1.1); #Neutrophils 5.6 10x3/uL (1.5-8.4); %Basophils 0.4 % (0.0-2.0); %Lymphocytes 10.5 % (18.0-47.0); %Monocytes 8.5 % (0.0-10.0); %Neutrophils 79.3 % (40.0-75.0); Hemoglobin 18.1 g/dL (12.0-15.5); Mean Corpuscular HGB CONC 35.5 g/dL (32.0-36.0); Mean Corpuscular Hemoglobin 29.8 pg (27.0-33.0); Platelet Count 116 10x3/uL (150-450); RBC Distribution Width 20.8 % (11.5-14.5); Red Blood Cell (RBC) Count 6.07 10x6/uL (3.90-5.03); White Blood Cell (WBC) Count 7.1 10x3/uL (3.5-10.5)
[2022-09-04] MEDS: Levothyroxine Sodium 50 MCG TAB PO SCH (06:05)
[2022-09-04] MEDS: Digoxin 0.125 MG TAB PO SCH ×2 (06:22→14:00)
[2022-09-04] MEDS ORDERED: Albumin 25% 25 GM/100 ML BOT IVPB SCH (11:00)
[2022-09-04] MEDS: Heparin 5,000 UNITS/ML VIAL SC SCH ×2 (18:36)
[2022-09-04] MEDS: Metoprolol Tartrate 25 MG TAB PO SCH ×2 (18:37→21:32)
[2022-09-04] MEDS: Hydrocortisone 10 mg Tablet PO SCH ×2 (18:37)
[2022-09-04] MEDS: Acetaminophen 325 MG TAB PO PRN (21:31)
[2022-09-05] MEDS: Heparin 5,000 UNITS/ML VIAL SC SCH ×4 (02:27→21:23)
[2022-09-05 05:03] LABS: Anion Gap 18 mmol/L (10-20); BUN (Urea Nitrogen) 51 mg/dL (9.8-20.1); Calc. Creatinine Clearance 65 mL/min (70-130); Calcium 8.8 mg/dL (7.8-10.44); Carbon Dioxide 18 mmol/L (22-29); Chloride 101 mmol/L (98-107); Estimated GFR 18; Glucose 136 mg/dL (70-105); Potassium 4.7 mmol/L (3.5-5.1); Sodium 132 mmol/L (136-145)
[2022-09-05] MEDS: Levothyroxine Sodium 50 MCG TAB PO SCH (05:13)
[2022-09-05 05:17] LABS: #Monocytes 0.6 10x3/uL (0.0-1.1); #Neutrophils 5.9 10x3/uL (1.5-8.4); %Basophils 0.3 % (0.0-2.0); Hemoglobin 17.6 g/dL (12.0-15.5); Mean Corpuscular HGB CONC 35.1 g/dL (32.0-36.0); Mean Corpuscular Hemoglobin 29.4 pg (27.0-33.0); Mean Corpuscular Volume 83.9 fl (81.6-98.3); Mean Platelet Volume 10.8 fl (7.4-10.4); Platelet Count 129 10x3/uL (150-450); RBC Distribution Width 20.5 % (11.5-14.5); Red Blood Cell (RBC) Count 5.98 10x6/uL (3.90-5.03); White Blood Cell (WBC) Count 7.1 10x3/uL (3.5-10.5)
[2022-09-05] MEDS: Digoxin 0.125 MG TAB PO SCH (06:50)
[2022-09-05] MEDS: Hydrocortisone 10 mg Tablet PO SCH ×2 (08:02→21:24)
[2022-09-05] MEDS: Metoprolol Tartrate 25 MG TAB PO SCH ×3 (09:22→21:25)
[2022-09-06 05:11] LABS: Anion Gap 21 mmol/L (10-20); BUN (Urea Nitrogen) 55 mg/dL (9.8-20.1); Calc. Creatinine Clearance 60 mL/min (70-130); Calcium 9.6 mg/dL (7.8-10.44); Carbon Dioxide 19 mmol/L (22-29); Chloride 100 mmol/L (98-107); Estimated GFR 16; Glucose 91 mg/dL (70-105); Sodium 134 mmol/L (136-145)
[2022-09-06 05:16] LABS: #Monocytes 0.6 10x3/uL (0.0-1.1); #Neutrophils 6.1 10x3/uL (1.5-8.4); %Basophils 0.3 % (0.0-2.0); %Lymphocytes 8.1 % (18.0-47.0); %Monocytes 8.7 % (0.0-10.0); %Neutrophils 82.1 % (40.0-75.0); Mean Corpuscular HGB CONC 35.4 g/dL (32.0-36.0); Mean Corpuscular Hemoglobin 30.1 pg (27.0-33.0); Mean Corpuscular Volume 84.9 fl (81.6-98.3); Mean Platelet Volume 11.1 fl (7.4-10.4); Platelet Count 140 10x3/uL (150-450); RBC Distribution Width 20.9 % (11.5-14.5); Red Blood Cell (RBC) Count 5.98 10x6/uL (3.90-5.03); White Blood Cell (WBC) Count 7.4 10x3/uL (3.5-10.5)
[2022-09-06] MEDS: Hydrocortisone 10 mg Tablet PO SCH ×2 (06:50→22:43)
[2022-09-06] MEDS: Levothyroxine Sodium 50 MCG TAB PO SCH (06:51)
[2022-09-06] MEDS: Digoxin 0.125 MG TAB PO SCH (06:51)
[2022-09-06] MEDS: Heparin 5,000 UNITS/ML VIAL SC SCH ×3 (09:19→22:43)
[2022-09-06] MEDS: Metoprolol Tartrate 25 MG TAB PO SCH ×2 (09:20→22:43)
[2022-09-06 10:40] LABS: Potassium 5.1 mmol/L (3.5-5.1)
[2022-09-06] MEDS ORDERED: PROPOFOL 20 ML ONE (15:46)
[2022-09-06] MEDS ORDERED: PHENYLEPHRINE-NS 100 MCG/ML 10 ML SYRINGE ONE (15:49)
[2022-09-06] MEDS ORDERED: Lidocaine 4% PF 5 ML AMP ONE (15:49)
[2022-09-06] MEDS ORDERED: Heparin 1,000 UNITS/ML VIAL ONE ×2 (15:53→17:30)
[2022-09-06] MEDS ORDERED: Bupivacaine/Epinephrine 0.25% 30 ML VIAL ONE (15:54)
[2022-09-06] MEDS ORDERED: Rocuronium Bromide 10 MG/ML (10ML VIAL) ONE (16:58)
[2022-09-06] MEDS ORDERED: SUGAMMADEX SODIUM 200 MG/2 ML VIAL ONE (16:59)
[2022-09-06] MEDS ORDERED: CEFAZOLIN 1 GM VIAL ONE (17:28)
[2022-09-06] MEDS ORDERED: Heparin 10,000 UNITS/ 10 ML VIAL ONE (17:31)
[2022-09-06] MEDS ORDERED: ePHEDrine Sulfate 50 MG/10 ML VIAL ONE (17:32)
[2022-09-06] MEDS ORDERED: Phenylephrine 10 MG/ML VIAL ONE (18:31)
[2022-09-07] MEDS: Digoxin 0.125 MG TAB PO SCH ×2 (06:09→06:51)
[2022-09-07] MEDS: Levothyroxine Sodium 50 MCG TAB PO SCH (06:10)
[2022-09-07 06:57] LABS: #Basophils 0.1 10x3/uL (0.0-0.2); #Monocytes 1.4 10x3/uL (0.0-1.1); #Neutrophils 7.7 10x3/uL (1.5-8.4); %Basophils 0.9 % (0.0-2.0); %Eosinophils 0.1 % (0.0-6.0); %Lymphocytes 10.7 % (18.0-47.0); %Monocytes 13.6 % (0.0-10.0); %Neutrophils 73.7 % (40.0-75.0); Hemoglobin 18.6 g/dL (12.0-15.5); Mean Corpuscular HGB CONC 35.2 g/dL (32.0-36.0); Mean Corpuscular Hemoglobin 29.6 pg (27.0-33.0); Mean Corpuscular Volume 84.1 fl (81.6-98.3); Platelet Count 138 10x3/uL (150-450); RBC Distribution Width 21.3 % (11.5-14.5); Red Blood Cell (RBC) Count 6.29 10x6/uL (3.90-5.03); White Blood Cell (WBC) Count 10.5 10x3/uL (3.5-10.5)
[2022-09-07 09:02] LABS: ALT (SGPT) 29 U/L (8-55); AST (SGOT) 40 U/L (5-34); Albumin 3.1 g/dL (3.5-5.0); Alkaline Phosphatase 95 U/L (40-110); Anion Gap 18 mmol/L (10-20); BUN (Urea Nitrogen) 51 mg/dL (9.8-20.1); Bilirubin, Total 2.8 mg/dL (0.2-1.2); Calc. Creatinine Clearance 52 mL/min (70-130); Calcium 9.3 mg/dL (7.8-10.44); Carbon Dioxide 24 mmol/L (22-29); Chloride 97 mmol/L (98-107); Estimated GFR 13; Globulin 3.5 g/dL (2.4-3.5); Glucose 105 mg/dL (70-105); Potassium 5.2 mmol/L (3.5-5.1); Protein, Total 6.6 g/dL (6.0-8.3); Sodium 134 mmol/L (136-145)
[2022-09-07] MEDS: Metoprolol Tartrate 25 MG TAB PO SCH ×2 (09:56→21:17)
[2022-09-07] MEDS: Heparin 5,000 UNITS/ML VIAL SC SCH ×3 (09:56→21:17)
[2022-09-07] MEDS: Hydrocortisone 10 mg Tablet PO SCH ×2 (09:56→21:17)
[2022-09-08] MEDS ORDERED: Metoprolol Tartrate 5 MG/5 ML VIAL IVP SCH (01:15)
[2022-09-08] MEDS: Acetaminophen 325 MG TAB PO PRN ×3 (03:19→23:54)
[2022-09-08] MEDS: Digoxin 0.125 MG TAB PO SCH (06:26)
[2022-09-08] MEDS: Levothyroxine Sodium 50 MCG TAB PO SCH (06:27)
[2022-09-08 06:28] LABS: #Monocytes 1.4 10x3/uL (0.0-1.1); #Neutrophils 7.8 10x3/uL (1.5-8.4); %Basophils 0.4 % (0.0-2.0); %Eosinophils 0.1 % (0.0-6.0); %Lymphocytes 9.7 % (18.0-47.0); %Monocytes 13.8 % (0.0-10.0); %Neutrophils 75.1 % (40.0-75.0); Hemoglobin 17.5 g/dL (12.0-15.5); Mean Corpuscular Hemoglobin 29.7 pg (27.0-33.0); Mean Corpuscular Volume 84.7 fl (81.6-98.3); Mean Platelet Volume 11.2 fl (7.4-10.4); Platelet Count 148 10x3/uL (150-450); RBC Distribution Width 21.1 % (11.5-14.5); White Blood Cell (WBC) Count 10.4 10x3/uL (3.5-10.5)
[2022-09-08] MEDS: Metoprolol Tartrate 25 MG TAB PO SCH (09:39)
[2022-09-08] MEDS: Hydrocortisone 10 mg Tablet PO SCH ×2 (09:40→23:54)
[2022-09-08] MEDS: Heparin 5,000 UNITS/ML VIAL SC SCH ×3 (09:40→21:37)
[2022-09-08] MEDS ORDERED: traMADol HCl 50 MG TAB PO SCH (13:45)
[2022-09-08 17:02] LABS: ALT (SGPT) 23 U/L (8-55); AST (SGOT) 34 U/L (5-34); Albumin 3.4 g/dL (3.5-5.0); Alkaline Phosphatase 91 U/L (40-110); Anion Gap 23 mmol/L (10-20); BUN (Urea Nitrogen) 64 mg/dL (9.8-20.1); Calc. Creatinine Clearance 43 mL/min (70-130); Calcium 9.8 mg/dL (7.8-10.44); Carbon Dioxide 20 mmol/L (22-29); Chloride 97 mmol/L (98-107); Estimated GFR 11; Globulin 3.1 g/dL (2.4-3.5); Glucose 74 mg/dL (70-105); Potassium 5.8 mmol/L (3.5-5.1); Protein, Total 6.5 g/dL (6.0-8.3); Sodium 134 mmol/L (136-145)
[2022-09-08] MEDS ORDERED: LOKELMA 10 GM PACKET PO SCH (21:00)
[2022-09-09] MEDS: Metoprolol Tartrate 25 MG TAB PO SCH ×3 (00:32→20:48)
[2022-09-09] MEDS: Levothyroxine Sodium 50 MCG TAB PO SCH (06:40)
[2022-09-09] MEDS: Digoxin 0.125 MG TAB PO SCH (06:40)
[2022-09-09] MEDS: Acetaminophen 325 MG TAB PO PRN (06:48)
[2022-09-09] MEDS: Heparin 5,000 UNITS/ML VIAL SC SCH ×3 (08:50→20:49)
[2022-09-09] MEDS: Hydrocortisone 10 mg Tablet PO SCH ×2 (08:55→20:48)
[2022-09-09 13:11] LABS: Hemoglobin 18.2 g/dL (12.0-15.5); Mean Corpuscular HGB CONC 35.6 g/dL (32.0-36.0); Mean Corpuscular Hemoglobin 29.7 pg (27.0-33.0); Mean Corpuscular Volume 83.4 fl (81.6-98.3); Platelet Count 84 10x3/uL (150-450); RBC Distribution Width 21.4 % (11.5-14.5); Red Blood Cell (RBC) Count 6.13 10x6/uL (3.90-5.03); White Blood Cell (WBC) Count 22.3 10x3/uL (3.5-10.5)
[2022-09-09 13:33] LABS: Anion Gap 23 mmol/L (10-20); BUN (Urea Nitrogen) 55 mg/dL (9.8-20.1); Calc. Creatinine Clearance 45 mL/min (70-130); Calcium 9.8 mg/dL (7.8-10.44); Carbon Dioxide 18 mmol/L (22-29); Chloride 96 mmol/L (98-107); Estimated GFR 11; Glucose 87 mg/dL (70-105); Potassium 5.4 mmol/L (3.5-5.1); Sodium 132 mmol/L (136-145)
[2022-09-09 13:59] LABS: Band 6 % (5-11); Lymphocytes 7 % (21-51); Monocytes 6 % (0-10)
[2022-09-09 14:05] LABS: Neutrophil 81 % (42-75)
[2022-09-09 14:06] LABS: Anisocytosis SLIGHT = 6-15 cells (100X) (0-5/hpf); Macrocytosis SLIGHT = 6-15 cells (100X) (0-5/hpf); Microcytosis SLIGHT = 6-15 cells (100X) (0-5/hpf); Nucleated RBC (Manual Ct) 3 % (0); Polychromasia SLIGHT = 2-3 cells (100X) (0-2/hpf); Target Cells MODERATE= 6-15 cells (100X) (0-1/hpf)
[2022-09-09 14:10] LABS: Large Platelets SLIGHT (None Seen); Platelet Morphology Comment Appears Decreased
[2022-09-09 14:11] LABS: MDiff Complete? YES; Manual Diff?? YES
[2022-09-09] MEDS: traMADol HCl 50 MG TAB PO PRN ×2 (15:39→22:23)
[2022-09-10] MEDS: Dextrose 50% Abboject 50 ML SYRINGE SLOW IVP PRN ×2 (00:30→15:33)
[2022-09-10 04:39] LABS: Hemoglobin 18.2 g/dL (12.0-15.5); Mean Corpuscular HGB CONC 34.5 g/dL (32.0-36.0); Mean Corpuscular Hemoglobin 30.5 pg (27.0-33.0); Mean Corpuscular Volume 88.3 fl (81.6-98.3); Platelet Count 75 10x3/uL (150-450); RBC Distribution Width 22.6 % (11.5-14.5); Red Blood Cell (RBC) Count 5.97 10x6/uL (3.90-5.03); White Blood Cell (WBC) Count 24.4 10x3/uL (3.5-10.5)
[2022-09-10 05:36] LABS: MDiff Complete? YES
[2022-09-10 05:38] LABS: Band 6 % (5-11); Lymphocytes 4 % (21-51); Monocytes 4 % (0-10); Neutrophil 86 % (42-75); Nucleated RBC (Manual Ct) 13 % (0)
[2022-09-10 05:41] LABS: Macrocytosis MODERATE=16-30 cells (100X) (0-5/hpf); Platelet Morphology Comment Appears Decreased; Target Cells SLIGHT = 2-5 cells (100X) (0-1/hpf)
[2022-09-10] MEDS: Levothyroxine Sodium 50 MCG TAB PO SCH (06:24)
[2022-09-10] MEDS: Metoprolol Tartrate 25 MG TAB PO SCH (08:21)
[2022-09-10] MEDS: Hydrocortisone 10 mg Tablet PO SCH (08:21)
[2022-09-10] MEDS: Heparin 5,000 UNITS/ML VIAL SC SCH ×2 (08:24→21:22)
[2022-09-10] MEDS: Digoxin 0.125 MG TAB PO SCH (08:28)
[2022-09-10] MEDS ORDERED: Cefepime 2 GM in Sodium Chloride 0.9% 100 ML IVPB ONE (08:43)
[2022-09-10] MEDS ORDERED: metroNIDAZOLE 500 MG in Premix Bag 1 BAG IVPB ONE (08:44)
[2022-09-10] MEDS ORDERED: Doxycycline 100 MG in Sodium Chloride 0.9% 100 ML IVPB SCH ×2 (09:00→22:00)
[2022-09-10] MEDS ORDERED: Cefepime 1 GM in Sodium Chloride 0.9% 100 ML IVPB SCH (09:00)
[2022-09-10] MEDS ORDERED: metroNIDAZOLE 500 MG in Premix Bag 1 BAG IVPB SCH ×2 (09:00→11:00)
[2022-09-10 13:17] LABS: ALT (SGPT) 27 U/L (8-55); AST (SGOT) 73 U/L (5-34); Albumin 3.1 g/dL (3.5-5.0); Alkaline Phosphatase 93 U/L (40-110); Anion Gap 28 mmol/L (10-20); BUN (Urea Nitrogen) 64 mg/dL (9.8-20.1); Bilirubin, Total 5.3 mg/dL (0.2-1.2); Calc. Creatinine Clearance 37 mL/min (70-130); Calcium 9.7 mg/dL (7.8-10.44); Carbon Dioxide 12 mmol/L (22-29); Chloride 96 mmol/L (98-107); Estimated GFR 9; Globulin 3.3 g/dL (2.4-3.5); Glucose 67 mg/dL (70-105); Protein, Total 6.4 g/dL (6.0-8.3); Sodium 129 mmol/L (136-145)
[2022-09-10 13:35] LABS: Potassium 7.1 mmol/L (3.5-5.1)
[2022-09-10] MEDS ORDERED: Dextrose 50% Abboject 50 ML SYRINGE SLOW IVP SCH ×3 (14:00→16:00)
[2022-09-10] MEDS ORDERED: Insulin Regular 300 UNITS/3 ML VIAL IVP SCH (14:00)
[2022-09-10] MEDS ORDERED: Calcium Gluc 4.6 MEQ/10 ML (100 MG/ML) SLOW IVP SCH (14:00)
[2022-09-10] MEDS ORDERED: Sodium Bicarb 50 MEQ/50 ML VIAL IVP SCH (14:15)
[2022-09-10 14:16] LABS: Actual Bicarbonate (HCO3v) 16.3 mEq/L (22-28); Base Excess -11.5 mEq/L (-2 - +2); Calcium, Ionized (venous) 1.18 mmol/L (1.16-1.32); Chloride (VBG) 96 mmol/L (98-106); Critical Notified Whom: Alyssa, RN; Hematocrit-VBG 53 % (36.0-47.0); Potassium (VBG) 5.94 mmol/L (3.70-5.30); Puncture Site Other Site; RapidComm Collect By CBN; Sodium 130.7 mmol/L (133-146); pH (venous) 7.194 (7.32-7.43)
[2022-09-10] MEDS ORDERED: NOREPINEPHRINE 8 MG/250 ML-D5W 250 ML ONE (14:27)
[2022-09-10] MEDS ORDERED: VANCOMYCIN 2 GRAM/400 ML BAG 2 GM in Premix Bag 1 BAG IVPB SCH (14:30)
[2022-09-10] MEDS ORDERED: Vancomycin Dialysis Sliding Scale (Wt > 99) FS SCH (14:30)
[2022-09-10] MEDS ORDERED: Piperacillin/Tazobactam 3.375 GM in Sodium Chloride 0.9% 100 ML IVPB SCH (14:30)
[2022-09-10] MEDS: Vasopressin 20 UNITS, Admixture Fee 1 EACH in Sodium Chloride 0.9% 50 ML IV SCH ×2 (14:58→23:30)
[2022-09-10 15:01] LABS: Bilirubin 3+ (Negative); Blood, Urine 150 (Negative); Clarity Cloudy (Clear); Glucose, Urine (Dipstick) 50 mg/dL (Negative); Ketone, Urine 5 mg/dL (Negative); Leukocyte 100 (Negative); Nitrite Negative (Negative); Protein, Urine (Dipstick) 500 mg/dl (Neg-Trace); Specific Gravity, Urine 1.015 (1.005-1.030); Urobilinogen Normal mg/dL (Less than 2); pH, Urine 6.5 (5.0-9.0)
[2022-09-10 15:13] LABS: CAUTI Indications for Culture Alt mental st,lethar; Squamous Epithelial 21-50 HPF (0-3)
[2022-09-10 15:19] LABS: Bacteria/HPF Rare-Few HPF (None Seen); Mucous/LPF 1+ LPF (<2+)
[2022-09-10 15:20] LABS: Urine Culture Reflex No No
[2022-09-10] MEDS: Piperacillin/Tazobactam 3.375 GM in Sodium Chloride 0.9% 100 ML IVPB SCH (15:37)
[2022-09-10] MEDS ORDERED: Dextrose 5% in Water 1,000 ML IV SCH (15:45)
[2022-09-10 16:08] LABS: Lactic Acid 5.8 mmol/L (0.5-2.2)
[2022-09-10] MEDS: Dextrose 10% in Water 1,000 ML IV SCH (17:49)
[2022-09-10] MEDS: Phenylephrine 40 MG/NS 250 ML 40 MG in Premix Bag 1 BAG IVPB SCH ×2 (18:29→22:44)
[2022-09-10 19:01] LABS: Lactic Acid 4.6 mmol/L (0.5-2.2)
[2022-09-10] MEDS: Hydrocortisone Sod Succ/PF 100 mg/2 ml Vial IVP SCH (19:30)
[2022-09-10] MEDS ORDERED: Heparin 10,000 UNITS/ 10 ML VIAL FS PRN (20:15)
[2022-09-10] MEDS ORDERED: NOREPINEPHRINE 8 MG/250 ML-D5W 250 ML IVPB SCH (20:30)
[2022-09-10] MEDS ORDERED: Amiodarone In Dextrose 150 MG in Premix Bag 1 BAG IVPB SCH (21:15)
[2022-09-10 21:24] LABS: ALV-art Gradient 543.725 mmHg (0-20); Actual Bicarbonate (HCO3a) 15.4 mEq/L (22-28); Base Excess (BEa) -9.1 mEq/L (-2.0 to +3.0); CO2 Tension 30.7 mmHg (35.0-45.0); Calcium, Ionized (arterial) 1.07 mmol/L (1.12-1.30); Carboxyhemoglobin (COHb) 0.5 gm% (0.0-3.0); Hematocrit-ABG 54 % (36.0-47.0); Hemoglobin (Hb) 18.5 g/dL (12.0-16.0); O2 Tension (PaO2), arterial 130.9 mmHg (80.0-100.0); Potassium - ABG Lab 6.97 mmol/L (3.70-5.30); Puncture Site Arterial Line; pH, Arterial 7.317 (7.35-7.45)
[2022-09-10] MEDS ORDERED: HYDROmorphone 0.5 MG/0.5 ML SYRINGE SLOW IVP PRN (21:50)
[2022-09-10] MEDS: Amiodarone In Dextrose 360 MG in Premix Bag 1 BAG IVPB SCH (21:55)
[2022-09-10] MEDS: Sodium Bicarb 50 MEQ/50 ML VIAL IVP SCH ×3 (22:54→23:07)
[2022-09-10 23:50] LABS: Anion Gap 26 mmol/L (10-20); BUN (Urea Nitrogen) 43 mg/dL (9.8-20.1); Calc. Creatinine Clearance 48 mL/min (70-130); Calcium 8.7 mg/dL (7.8-10.44); Carbon Dioxide 20 mmol/L (22-29); Chloride 97 mmol/L (98-107); Estimated GFR 12; Glucose 128 mg/dL (70-105); Sodium 138 mmol/L (136-145)
[2022-09-11 00:28] LABS: Actual Bicarbonate (HCO3a) 15.4 mEq/L (22-28); Base Excess (BEa) -8.8 mEq/L (-2.0 to +3.0); CO2 Tension 29.8 mmHg (35.0-45.0); Calcium, Ionized (arterial) 1.01 mmol/L (1.12-1.30); Carboxyhemoglobin (COHb) 1.1 gm% (0.0-3.0); Hematocrit-ABG 50 % (36.0-47.0); Hemoglobin (Hb) 17.1 g/dL (12.0-16.0); O2 Tension (PaO2), arterial 91.6 mmHg (80.0-100.0); Potassium - ABG Lab 4.84 mmol/L (3.70-5.30); Puncture Site Arterial Line; pH, Arterial 7.332 (7.35-7.45)
[2022-09-11] MEDS: Phenylephrine 40 MG/NS 250 ML 40 MG in Premix Bag 1 BAG IVPB SCH ×6 (02:07→19:54)
[2022-09-11] MEDS: Amiodarone In Dextrose 360 MG in Premix Bag 1 BAG IVPB SCH ×2 (02:07→15:06)
[2022-09-11 03:40] LABS: Hemoglobin 15.7 g/dL (12.0-15.5); Mean Corpuscular HGB CONC 34.1 g/dL (32.0-36.0); Mean Corpuscular Hemoglobin 29.9 pg (27.0-33.0); Mean Corpuscular Volume 87.6 fl (81.6-98.3); Platelet Count 41 10x3/uL (150-450); RBC Distribution Width 21.8 % (11.5-14.5); Red Blood Cell (RBC) Count 5.25 10x6/uL (3.90-5.03); White Blood Cell (WBC) Count 19.9 10x3/uL (3.5-10.5)
[2022-09-11 03:55] LABS: MDiff Complete? YES
[2022-09-11 03:57] LABS: Lymphocytes 2 % (21-51); Monocytes 3 % (0-10); Neutrophil 94 % (42-75); Nucleated RBC (Manual Ct) 12 % (0); Reactive Lymphocytes 1 % (0-10)
[2022-09-11 03:58] LABS: Anisocytosis SLIGHT = 6-15 cells (100X) (0-5/hpf); Polychromasia SLIGHT = 2-3 cells (100X) (0-2/hpf); Target Cells SLIGHT = 2-5 cells (100X) (0-1/hpf)
[2022-09-11 03:59] LABS: Platelet Morphology Comment Appears Decreased
[2022-09-11 04:02] LABS: Actual Bicarbonate (HCO3v) 13.2 mEq/L (22-28); Base Excess -18.3 mEq/L (-2 - +2); Calcium, Ionized (venous) 1.05 mmol/L (1.16-1.32); Chloride (VBG) 96 mmol/L (98-106); Hematocrit-VBG 49 % (36.0-47.0); Hemoglobin (Hb) 16.7 g/dL (11.7-16.0); Potassium (VBG) 6.02 mmol/L (3.70-5.30); Puncture Site Other Site; Sodium 130.6 mmol/L (133-146); pH (venous) 7.009 (7.32-7.43)
[2022-09-11 04:21] LABS: ALT (SGPT) 28 U/L (8-55); AST (SGOT) 71 U/L (5-34); Alkaline Phosphatase 83 U/L (40-110); Anion Gap 30 mmol/L (10-20); BUN (Urea Nitrogen) 44 mg/dL (9.8-20.1); Bilirubin, Total 5.9 mg/dL (0.2-1.2); Calc. Creatinine Clearance 43 mL/min (70-130); Calcium 8.7 mg/dL (7.8-10.44); Carbon Dioxide 13 mmol/L (22-29); Chloride 97 mmol/L (98-107); Estimated GFR 11; Globulin 2.5 g/dL (2.4-3.5); Glucose 141 mg/dL (70-105); Magnesium 2.2 mg/dL (1.6-2.6); Protein, Total 5.5 g/dL (6.0-8.3); Sodium 134 mmol/L (136-145)
[2022-09-11 04:24] LABS: Potassium 6.4 mmol/L (3.5-5.1)
[2022-09-11 04:24] LABS: Lactic Acid 13.4 mmol/L (0.5-2.2)
[2022-09-11 04:30] LABS: Phosphorus 8.3 mg/dL (2.3-4.7)
[2022-09-11] MEDS: EPINEPHrine 4 MG in Dextrose 5% in Water 250 ML IV SCH ×5 (04:57→20:55)
[2022-09-11] MEDS: Clindamycin/D5W 900 MG in Premix Bag 1 BAG IVPB SCH ×4 (05:14→22:09)
[2022-09-11] MEDS: Piperacillin/Tazobactam 3.375 GM in Sodium Chloride 0.9% 100 ML IVPB SCH (05:14)
[2022-09-11] MEDS: Levothyroxine Sodium 50 MCG TAB PO SCH (05:18)
[2022-09-11] MEDS: Hydrocortisone Sod Succ/PF 100 mg/2 ml Vial IVP SCH ×3 (05:18→19:52)
[2022-09-11] MEDS: Digoxin 0.125 MG TAB PO SCH (05:19)
[2022-09-11 05:29] VITALS: BMI 58.6
[2022-09-11] MEDS: Dextrose 10% in Water 1,000 ML IV SCH ×2 (05:56→19:53)
[2022-09-11] MEDS: Vasopressin 20 UNITS, Admixture Fee 1 EACH in Sodium Chloride 0.9% 50 ML IV SCH ×3 (05:56→22:08)
[2022-09-11 06:42] LABS: Lactic Acid 13.7 mmol/L (0.5-2.2)
[2022-09-11 06:43] LABS: Vancomycin, Random 17.9 ug/mL (See Comment)
[2022-09-11] MEDS ORDERED: Micafungin 100 MG in Sodium Chloride 0.9% 100 ML IVPB SCH (08:00)
[2022-09-11] MEDS: DOBUTamine 500 mg/250 ml 250 ML IVPB SCH ×2 (08:28→16:36)
[2022-09-11 08:29] LABS: ALV-art Gradient 147.325 mmHg (0-20); Actual Bicarbonate (HCO3a) 8.3 mEq/L (22-28); CO2 Tension 27.7 mmHg (35.0-45.0); Calcium, Ionized (arterial) 1.08 mmol/L (1.12-1.30); Carboxyhemoglobin (COHb) 0.8 gm% (0.0-3.0); Hematocrit-ABG 49 % (36.0-47.0); Hemoglobin (Hb) 16.6 g/dL (12.0-16.0); O2 Tension (PaO2), arterial 138.9 mmHg (80.0-100.0); Potassium - ABG Lab 5.48 mmol/L (3.70-5.30); Puncture Site Arterial Line; pH, Arterial 7.095 (7.35-7.45)
[2022-09-11] MEDS: Heparin 5,000 UNITS/ML VIAL SC SCH ×3 (08:42→20:03)
[2022-09-11] MEDS ORDERED: Pantoprazole 40 MG VIAL IVP SCH (09:00)
[2022-09-11] MEDS ORDERED: Meropenem 1 GM in Sodium Chloride 0.9% 100 ML IVPB SCH (10:00)
[2022-09-11 10:13] LABS: Lactic Acid 12.4 mmol/L (0.5-2.2)
[2022-09-11] MEDS: Dextrose 50% Abboject 50 ML SYRINGE SLOW IVP PRN (12:21)
[2022-09-11] MEDS ORDERED: Vancomycin HCl 1 GM in Sodium Chloride 0.9% 250 ML 250 ML IVPB SCH (17:00)
[2022-09-11] MEDS ORDERED: Meropenem 500 MG in Sodium Chloride 0.9% 100 ML IVPB SCH (18:00)
[2022-09-11 20:30] VITALS: BP 58/45; TEMP 97.1
[2022-09-13 14:14] LABS: Heparin-Induced Ab (HITA) 1.323 OD (0.000-0.400)
== END 2022-09-12 02:00 | disposition expired | DRG 291 ==
LOC: CSHERS 10:50 → CSHIMCU 13:33 → CSHTELE 09-03 18:09 → CSHICU 09-10 12:15
PROVIDERS: ADMIT Internal Medicine; ATTEND Internal Medicine
PROC: 02HV33Z Insertion of Infusion Device into Superior Vena Cava, Percutaneous Approach (ICD-10-PCS; principal; 2022-08-27)
PROC: B548ZZA Ultrasonography of Superior Vena Cava, Guidance (ICD-10-PCS; 2022-08-27)
PROC: 3E033XZ Introduction of Vasopressor into Peripheral Vein, Percutaneous Approach (ICD-10-PCS; 2022-08-27)
PROC: 30233J1 Transfusion of Nonautologous Serum Albumin into Peripheral Vein, Percutaneous Approach (ICD-10-PCS; 2022-08-27)
PROC: 4A033R1 Measurement of Arterial Saturation, Peripheral, Percutaneous Approach (ICD-10-PCS; 2022-08-27)
PROC: 5A09357 Assistance with Respiratory Ventilation, Less than 24 Consecutive Hours, Continuous Positive Airway Pressure (ICD-10-PCS; 2022-08-28)
PROC: 05HY33Z Insertion of Infusion Device into Upper Vein, Percutaneous Approach (ICD-10-PCS; 2022-09-10)
PROC: 5A1D70Z Performance of Urinary Filtration, Intermittent, Less than 6 Hours Per Day (ICD-10-PCS; 2022-09-10)
PROC: 5A09357 Assistance with Respiratory Ventilation, Less than 24 Consecutive Hours, Continuous Positive Airway Pressure (ICD-10-PCS; 2022-09-11)
PROC: 5A12012 Performance of Cardiac Output, Single, Manual (ICD-10-PCS; 2022-09-12)
DX: I13.2 Hypertensive heart and chronic kidney disease with heart failure and with stage 5 chronic kidney disease, or end stage renal disease (principal); A41.9 Sepsis, unspecified organism; I50.23 Acute on chronic systolic (congestive) heart failure; J96.01 Acute respiratory failure with hypoxia; N18.6 End stage renal disease; G93.41 Metabolic encephalopathy; N17.9 Acute kidney failure, unspecified; E87.1 Hypo-osmolality and hyponatremia; N39.0 Urinary tract infection, site not specified; I48.20 Chronic atrial fibrillation, unspecified; E87.20 Acidosis, unspecified; T82.898A Other specified complication of vascular prosthetic devices, implants and grafts, initial encounter; L03.119 Cellulitis of unspecified part of limb; Z68.43 Body mass index [BMI] 50.0-59.9, adult; I42.9 Cardiomyopathy, unspecified; E78.5 Hyperlipidemia, unspecified; G47.33 Obstructive sleep apnea (adult) (pediatric); M19.90 Unspecified osteoarthritis, unspecified site; E03.9 Hypothyroidism, unspecified; E87.5 Hyperkalemia; E66.01 Morbid (severe) obesity due to excess calories; D63.1 Anemia in chronic kidney disease; I95.9 Hypotension, unspecified; E88.09 Other disorders of plasma-protein metabolism, not elsewhere classified; R73.03 Prediabetes; E78.2 Mixed hyperlipidemia; I87.8 Other specified disorders of veins; E16.2 Hypoglycemia, unspecified; D69.6 Thrombocytopenia, unspecified; Y83.8 Other surgical procedures as the cause of abnormal reaction of the patient, or of later complication, without mention of misadventure at the time of the procedure; Z88.8 Allergy status to other drugs, medicaments and biological substances; Z79.82 Long term (current) use of aspirin; Z79.01 Long term (current) use of anticoagulants; Z79.899 Other long term (current) drug therapy
CPT/HCPCS: 36415; 36416; 36556; 36600; 71045; 74018; 74019; 76770; 80048; 80053; 80162; 80202; 81001; 81003; 81015; 82140; 82553; 82668; 82805; 83605; 83690; 83735; 83880; 84100; 84439; 84443; 84484; 85025; 85379; 86704; 87040; 87077; 87086; 87149; 87186; 90935; 93005; 93010; 93306; 93923; 94660; 94760; 94762; 96365; 96375; 96376; 97139; 99292; C1752; C9113; G0257; J0171; J0283; J0612; J0690; J0692; J1160; J1250; J1642; J1644; J1720; J1815; J2185; J2248; J2250; J2370; J2543; J2704; J3370; J3490; J7070; J7999; P9045; P9047